=== PATIENT | male | born 1980 | race African-American/Black ===

== ENCOUNTER 2016-09-01 11:57 | Emergency (ER) | payer SELFPAY ==
[2016-09-01 12:11] VITALS: TEMP 99.4; BMI 22.3
--- NOTE | 2016-09-01 13:53 | PDOC ---
History of Present Illness - General Chief Complaint: Lightheaded Stated Complaint: CHEST PAIN, LT ARM NUMBNESS, HEADACHE Time Seen by Provider: 09/01/16 12:56 History Source: Patient Exam Limitations: No Limitations - History of Present Illness Initial Comments: 09/01/16 14:10 My Chief Complaint: headache frontal, lightheadedness/dizziness for 4 days, lower mid chest pain 2 days ago none now, left lateral neck discomfort, no cough or shortness of breath Patient is a 36-year-old male with no significant medical problems in the past here today complaining of frontal headache for 4 days, with light weakness in dizziness when getting up from a seated position. Patient also reports having chills and having discomfort in his left lateral arm intermittently with movement. Patient reports that yesterday in early a.m. he woke with abdominal discomfort with intermittent abdominal cramping patient denied any nausea or vomiting or diarrhea. Patient noted 2 days ago to have a raised tender area on left lateral neck. Patient denies any nasal congestion or sore throat or cough or any chest pain currently. Patient did not get influenza vaccine. Patient also reports having decreased appetite. Denies any recent travel or any sick contacts. Headache frontal is a 9 out of 10 throbbing in nature. He denies any numbness of the left arm patient does not have any facial drooping PMH: No h/o HIV Allergies: NKDA PSH: [drink socially twice a wk, denies drug use REVIEW OF SYSTEMS GENERAL/CONSTITUTIONAL: No fever, has had chills. Generalized weakness. No weight change. HEAD, EYES, EARS, NOSE AND THROAT: No change in vision, photophobia, phonophobia. No ear pain or discharge. No sore throat. CARDIOVASCULAR: Mid lower chest pain 2 dasys ago with no shortness of breath., or cough RESPIRATORY: No cough, wheezing, or hemoptysis. GASTROINTESTINAL: No nausea, vomiting. 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 nNo diarrhea or constipation. GENITOURINARY: No dysuria, frequency, or change in urination. MUSCULOSKELETAL: left lateral arm muscle tenderness, generalized body aches, left lateral neck pain, no back pain. SKIN No rash or easy bruising. NEUROLOGIC: Friontal headache, vertigo when getting up from seated position, no , loss of consciousness, altered mental status, or loss of sensation. PSYCHIATRIC: No depression or anxiety. ENDOCRINE: No increased thirst. No abnormal weight change. HEMATOLOGIC/LYMPHATIC: No anemia, easy bleeding, or history of blood clots, swelling of left lateral lymph node ALLERGIC/IMMUNOLOGIC: No hives or skin allergy. No latex allergy. PHYSICAL EXAM General Appearance: Appropriately dressed. No apparent distress, no intoxication HEENT: EOMI, ARI. No nystagmus. Normal voice. TMs normal, pharynx normal. No pallor of conjunctivae, no scleral icterus Neck: Supple, trachea midline. No tenderness, rigidity, carotid bruit, stridor , left lateral lymphadenopathy, no thyromegaly. Respiratory/Chest: Lungs CTAB. Breath sounds normal. No chest tenderness, despiratory ristress, accessory muscle Use, labored respiration, crackles, rales, rhonchi, stridor, wheezing, dullness Cardiovascular: Regular Rhythm, Regular Rate, S1, S2. No JVD, Murmur, Tachycardia Gastrointestinal/Abdominal: positive for Normal Bowel Sounds, Flat, Soft. No Tenderness, Organomegaly, Pulsatile Mass, Distention, Guarding, Rebound, Hernia , Hepatomegaly, Spleenomegaly Lymphatic: left lateral neck Adenopathy with Tenderness Musculoskeletal: Normal Inspection. No CVA Tenderness, Decreased Range of Motion], tenderness left lateral upper arm Extremity: FROM of all extremities, Normal Capillary Refill, Normal Inspection, Normal Range of Motion, Pelvis Stable. No tenderness, Pedal Edema, Swelling, Erythema or deformity Integumentary: Normal Color, Dry, Warm, . 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 No appreciable EOM Palsy, Facial Droop or Sensory Deficit 09/01/16 14:24 09/01/16 14:31 09/01/16 15:22 09/01/16 15:49 09/01/16 21:01 09/01/16 21:03 Timing/Duration: changing over time Severity: moderate Associated Symptoms: reports: chest pain (3 days ago, lower mid none now ), fever/chills (chillsd ), headaches (frontal ), weakness (generalized), other ( headache frontal, generalized bodyaches, chills, ). denies: nausea/vomiting Past History - Past Medical History Allergies/Adverse Reactions: Allergies Allergy/AdvReac Type Severity Reaction Status Date / Time No Known Allergies Allergy Verified 09/01/16 12:06 Home Medications: Ambulatory Orders Oxycodone HCl/Acetaminophen [Percocet 5-325 mg Tablet] 1 tab PO Q6H PRN #9 tablet MDD 4 09/01/16 Other medical history: DENIES. - Psycho/Social/Smoking Cessation Hx Suicidal Ideation: No Smoking History: Current every day smoker Have you smoked in the past 12 months: Yes Number of Cigarettes Smoked Daily: 10 Information on smoking cessation initiated: No *Physical Exam - Vital Signs Last Vital Signs Temp Pulse Resp BP Pulse Ox 99.4 F 104 H 19 123/75 100 09/01/16 12:06 09/01/16 12:06 09/01/16 12:06 09/01/16 12:06 09/01/16 12:06 ED Treatment Course - LABORATORY CBC & Chemistry Diagram: 09/01/16 14:19 09/01/16 14:15 Medical Decision Making - Medical Decision Making Patient is a 36-year-old male with no significant medical problems in the past here today complaining of frontal headache for 4 days, with light weakness in dizziness when getting up from a seated position. Patient also reports having chills and having discomfort in his left lateral arm intermittently with movement. Patient reports that yesterday in early a.m. he woke with abdominal discomfort with intermittent abdominal cramping patient denied any nausea or vomiting or diarrhea. Patient noted 2 days ago to have a raised tender area on left lateral neck. Patient denies any nasal congestion or sore throat or cough or any chest pain currently. Patient did not get influenza vaccine. Patient also reports having decreased appetite. Denies any recent travel or any sick contacts. Headache frontal is a 9 9ut of 10 throbbing in nature. He denies any numbness of the left arm patient does not have any facial drooping. Pt. denies any drug use. Frontal headache chills influenza like illness r/o influenza A or B r/o strep throat PLAN: cbc with diff cmp influenza A or B rapid negative throat C & S rapid negative IV insert NS 0.9 % 1 liter bolus 09/01/16 15:20 Laboratory Tests 09/01/16 09/01/16 14:15 14:19 WBC 8.6 RBC 5.35 Hgb 14.9 Hct 46.0 MCV 86.0 MCHC 32.4 RDW 14.6 Plt Count 110 L MPV 8.6 Neutrophils % 76.4 Lymphocytes % 8.7 Monocytes % 14.7 H Eosinophils % 0.0 Basophils % 0.2 Sodium 136 Potassium 3.8 Chloride 97 L Carbon Dioxide 29 Anion Gap 10 BUN 5 L Creatinine 1.1 Creat Clearance w eGFR > 60 Random Glucose 98 Calcium 8.9 Total Bilirubin 0.3 AST 10 L ALT 21 Alkaline Phosphatase 47 Total Protein 7.4 Albumin 3.6 09/01/16 15:21 headache has lessened is currently 4 or a 5 however he reports feeling lightheaded when looking downwards will get: head CT with out contrast no intracranial pathology noted per Dr. Gant sinus CT with out contrast minimal mucosal thickening in the ethmoid air cells and narrowing of the left sphenoid ethmoidal recess and moderately narrowing the right. Will discharge patient with pain medication with Ibuprofen as directed by extractor operator follow up with primary at [facility] decreased headache feeling better percocet 5mg/325 mg every 6 hrs prn severe pain 09/01/16 15:22 09/01/16 15:49 09/01/16 18:05 09/01/16 18:09 09/01/16 18:17 09/01/16 18:46 *DC/Admit/Observation/Transfer Diagnosis at time of Disposition: Influenza-like illness - Discharge Dispostion Disposition: HOME Condition at time of disposition: Stable - Prescriptions Prescriptions: Oxycodone HCl/Acetaminophen [Percocet 5-325 mg Tablet] 1 tab PO Q6H PRN #9 tablet MDD 4 PRN Reason: Severe Pain - Patient Instructions Additional Instructions: Follow-up with primary care physician at [facility] at as soon as possible Return to emergency room if symptoms worsen or new symptoms develop Take ibuprofen as needed as directed by extractor operator for pain Rest and avoid drinking any alcohol and drink a lot of water and juices Patient voiced understanding of discharge instructions and all questions were answered - Post Discharge Activity Work/School Note: Back to Work
[2016-09-01 14:23] LABS: BASOPHIL 0.2 % (0-2.0); MCH 27.8 pg (25.7-33.7); MCHC 32.4 g/dl (32.0-35.9); MEAN PLT VOLUME 8.6 fl (7.5-11.1); NEUTROPHILS 76.4 % (42.8-82.8); PLATELET COUNT 110 K/MM3 (134-434); RDW 14.6 % (11.9-15.9); WHITE BLOOD COUNT 8.6 K/mm3 (4.0-10.0)
[2016-09-01] MEDS ORDERED: KETOROLAC TROMETHAMINE 60 MG/2 ML VIAL IM ONE (14:25)
[2016-09-01] MEDS ORDERED: SODIUM CHLORIDE 1,000 ML IV STA (14:29)
[2016-09-01] MEDS ORDERED: KETOROLAC TROMETHAMINE 60 MG/2 ML VIAL IVPUSH ONE (14:32)
[2016-09-01] MEDS ORDERED: KETOROLAC TROMETHAMINE 30 MG/1 ML VIAL ONE (14:41)
[2016-09-01 14:54] LABS: ALBUMIN 3.6 g/dl (3.4-5.0); ALK PHOS 47 U/L (45-117); ANION GAP 10 (8-16); BILIRUBIN,TOTAL 0.3 mg/dL (0.2-1.0); CALCIUM 8.9 mg/dL (8.5-10.1); CO2 29 mmol/L (21-32); COCKROFT - GAULT 96.21; CREATININE 1.1 mg/dL (0.7-1.3); GLUCOSE,RANDOM 98 mg/dL (74-106); SGOT/AST 10 U/L (15-37); SGPT/ALT 21 U/L (12-78); TOT PROT 7.4 g/dl (6.4-8.2)
[2016-09-01 16:27] VITALS: BP 103/58; PULSE 86
--- NOTE | 2016-09-06 14:12 | EKG ---
Test Reason : Blood Pressure : / mmHG Vent. Rate : 098 BPM Atrial Rate : 098 BPM P-R Int : 134 ms QRS Dur : 090 ms QT Int : 332 ms P-R-T Axes : 062 -15 059 degrees QTc Int : 423 ms NORMAL SINUS RHYTHM POSSIBLE LEFT ATRIAL ENLARGEMENT LEFT VENTRICULAR HYPERTROPHY ABNORMAL ECG NO PREVIOUS ECGS AVAILABLE Confirmed by MARK BATES MD ([id number]) on 09/06/2016 2:12:08 PM Referred By: Confirmed By:MARK BATES MD
== END 2016-09-01 18:57 | disposition home or self-care (01) ==
LOC: JER 11:57
DX: J11.1 Influenza due to unidentified influenza virus with other respiratory manifestations (principal)
CPT/HCPCS: 36415; 70450-TC; 70486-TC; 80053; 85025; 87070; 87430; 87804; 93005; 93010; 99284-25